=== PATIENT | male | born 1950 | race Caucasian/White ===

== ENCOUNTER 2021-10-12 18:47 | Emergency (ER) | payer MEDICARE, BC, SELFPAY ==
[2021-10-12 19:01] VITALS: BP 141/88; PULSE 94; RESP 18; TEMP 37.2; O2SAT 95; BMI 29.1
--- NOTE | 2021-10-12 19:04 | ED.GENADULT ---
HPI - General Adult General Chief complaint: Skin/Abscess/Foreign Body Stated complaint: Anal Fistula Time Seen by Provider: 10/12/21 18:56 History of Present Illness HPI narrative: 71-year-old male nonsmoker, daily drinker with history of perirectal abscess and possible associated fistula that has been managed [place] doctors [place] presents with concern that it may have returned. States that he has been having discomfort in his anus after sitting for long periods of time but denies any severe pain, fever, chills, rectal drainage or other symptoms that are consistent with prior episodes. He states that he is hoping to get ahead of it this time and not wait so long. He denies any nausea or vomiting, change in diet or other. Related Data Previous Rx's Medication Instructions Recorded amoxicillin 875 mg-potassium 1 tab PO Q12H #20 tabs 10/12/21 clavulanate 125 mg tablet Allergies Allergy/AdvReac Type Severity Reaction Status Date / Time Penicillins Allergy Verified 10/12/21 19:09 Review of Systems Review of Systems Narrative: GENERAL: Denies chills, fatigue, malaise, fever, sweats. HEENT: Denies sinus pain, ear pain, sore throat, difficulty swallowing, dizziness. RESPIRATORY: Denies dyspnea, cough, wheezing, hemoptysis, sputum. CARDIOVASCULAR: Denies chest pain, palpitations, orthopnea, edema, GASTROINTESTINAL: See HPI : Denies dysuria, frequency, incontinence, hematuria, urinary retention. MUSCULOSKELETAL: denies weakness, joint pain, or bony pain SKIN: Denies rash, skin lesions, or other NEUROLOGIC: Denies weakness, headache, numbness, change in speech, confusion, seizures, incoordination. PSYCHIATRIC: No concerning psychosocial issues. 12 point review of systems is negative except for those stated above Patient History Social History Smoking Status: Never smoker Exam Narrative Exam Narrative: GENERAL: [71] year old patient appears stated age. Well-developed patient, in mild distress. HEAD: Atraumatic. Normocephalic. EYES: Pupils equal round and reactive. Extraocular motions intact. No scleral icterus. No injection or drainage. ENT: Nose without bleeding, purulent drainage. Throat without erythema, tonsillar hypertrophy or exudate. Airway patent. NECK: Trachea midline. Non tender CARDIOVASCULAR: Regular rate and rhythm without murmurs, gallops, or rubs. RESPIRATORY: Clear to auscultation. Breath sounds equal bilaterally. No wheezes, rales, or rhonchi. GASTROINTESTINAL: Abdomen soft, non-tender, nondistended. EXTREMITIES: No edema or joint tenderness. BACK: Nontender without deformity or crepitance. No flank tenderness. NEURO: AOx3. SKIN: No rash or erythema of visible areas Initial Vital Signs Initial Vital Signs: Vital Signs Temperature 99 F 10/12/21 19:01 Pulse Rate 94 H 10/12/21 19:01 Respiratory Rate 18 10/12/21 19:01 Blood Pressure 141/88 H 10/12/21 19:01 Pulse Oximetry 95 10/12/21 19:01 Oxygen Delivery Method 10/12/21 19:01 Course Orders Ordered: ED Orders 10/12/21 19:19 CT abdomen pelvis w con Stat 10/12/21 19:20 Complete Blood Count AUTO DIFF Stat Comprehensive Metabolic Panel Stat Lactate (Lactic Acid) Stat 10/12/21 20:44 Blood Culture Stat Discontinued Medications Amoxicillin/Clavulanate Potassium (Amoxicillin/Clav 875/125 Mg) 1 tab PO NOW ONE Stop: 10/12/21 22:13 Vital Signs Vital signs: Vital Signs - 8 hr 10/12/21 19:01 Temperature 99 F Pulse Rate 94 H Respiratory Rate 18 Blood Pressure 141/88 H Pulse Oximetry 95 Oxygen Delivery Method Room Air Medical Decision Making Lab Data Result diagrams: 10/12/21 19:20 10/12/21 19:20 Labs: Lab Results 10/12/21 10/12/21 10/12/21 Range/Units 19:20 19:20 19:20 WBC 12.0 H (4.5-11.0) X10^3/uL RBC 4.32 L (4.5-5.9) X10^6/uL Hgb 14.6 (13.5-17.5) g/dL Hct 43.0 (41-53) % MCV 99.5 (80-100) fL MCH 33.8 (26-34) PG MCHC 34.0 (30-36) % RDW 14.0 (11.6-14.8) % Plt Count 233 (150-400) X10^3/uL Neut % (Auto) 78.1 H (50-75) % Lymph % (Auto) 13.1 L (25-40) % [place] % (Auto) 7.3 (3-14) % Eos % (Auto) 0.8 L (2-4) % Baso % (Auto) 0.7 (0-2) % Neut # (Auto) 9400 H (8144-1328) /uL Lymph # (Auto) 1600 (4159-3140) /uL [place] # (Auto) 900 (0-900) /uL Eos # (Auto) 100 (0-450) /uL Baso # (Auto) 100 (0-100) /uL Sodium 136 L (137-145) mmol/L Potassium 3.6 (3.4-5.1) mmol/L Chloride 101 (98-107) mmol/L Carbon Dioxide 25 (22-32) mmol/L BUN 10 (9-20) mg/dL Creatinine 0.76 (0.66-1.25) mg/dL Estimated GFR > 60 (>60) mL/min BUN/Creatinine Ratio 13.2 (6-22) Glucose 123 H (80-110) mg/dL Lactate 1.8 (0.7-2.1) mmol/L Calcium 9.4 (8.4-10.2) mg/dL Total Bilirubin 0.8 (0.2-1.3) mg/dL AST 32 (17-59) IU/L ALT 30 (<50) IU/L Alkaline Phosphatase 46 (38-126) U/L Total Protein 7.8 (6.3-8.2) g/dL Albumin 4.5 (3.5-5.0) g/dL Globulin 3.3 (1.7-4.1) g/dL Albumin/Globulin Ratio 1.4 (1.0-2.8) Imaging Data CT scan - abdomen/pelvis: Radiologist's Impression: Close Abdomen/Pelvis CT (Signed) Oscar Virgen - 10/12/21 Launch?[address] [address] [address] Scan Report Signed Patient: Roseanne Baker MR#: [id number] : 1950 Acct:[id number] Age/Sex: 71 / M Date of Service: 10/12/21 Loc: ED Accession Number: [id number] ?? Procedure: CT abdomen pelvis w con Ordering Provider: Thiago Muñoz D.O. PROCEDURE:? CT ABDOMEN PELVIS W CON ? INDICATIONS:? rectal pain, history perirectal abscess, pending fistula surgery. ? TECHNIQUE:? After the administration of intravenous contrast, axial sections acquired from the lung bases to the pubic symphysis.? Coronal and sagittal reformats were performed.? For radiation dose reduction, the following was used:? automated exposure control, adjustment of mA and/or kV according to patient size.? Rectal contrast was utilized.? This refluxed into the upper half of right colon. ? COMPARISON:? None. ? FINDINGS:? Image quality:? Excellent.? ? Lung bases:? Unremarkable. Heart:? No significant findings. ? ABDOMEN: Liver:? Unremarkable.? ? Gallbladder:? Unremarkable.? ? Biliary ducts:? Unremarkable.? ? Pancreas:? Unremarkable.? ? Spleen:? Unremarkable.? ? Adrenal Glands:? Unremarkable.? ? Kidneys and Ureters:? 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 ? ? Stomach and Bowel:? Stomach, small bowel loops, and colon are unremarkable.? Peritoneum:? No abnormal intraperitoneal fluid.? No free air.? ? Ventral Wall: ? No hernias.? Abdominal Nodes:? No retroperitoneal or mesenteric adenopathy by size criteria.? Vessels:? Aorta and inferior vena cava are normal in size.? ? PELVIS: Pelvic Organs:? Unremarkable.? ? Bladder:? Unremarkable.? ? Pelvic Nodes: No enlarged lymph nodes.? Miscellaneous: No hernias are seen. ? ? No perirectal abscess is seen.? No fistula opacified by rectal contrast is found.? There does appear to be an inflammatory process at the anterior portion of the anal rectal junction seen on CT series 2, image 94.? ? Bones:? Unremarkable.? IMPRESSION:? No perirectal abscess or fistula containing rectal contrast is identified.? However, there does appear to be an inflammatory process at the anterior border of the anal rectal junction, low pelvis.? Please note that contrast-enhanced pelvic MR scanning provides the most accurate assessment for such structures and may detect internal abscess content that is not accurately detectable by CT scanning. ? Incidental note is made of a small benign angiomyolipoma and a minimally complex small cyst at the left kidney. ? ? Dictated by: Oscar Virgen M.D. on 10/12/2021 at 20:56 ? ? Approved by: Oscar Virgen M.D. on 10/12/2021 at 21:03 ? MDM Narrative Medical decision making narrative: 71-year-old male with very reassuring history and physical exam as no significant findings on labs, no obvious fistula or abscess on CT but some inflammatory change that could be consistent with early infectious process. Patient's discomfort well controlled, no signs of sepsis or need for any specific intervention, lengthy discussion with patient and , prescription sent to pharmacy of choice and questions answered to his apparent satisfaction. Discharge Plan Departure Patient Disposition: Home Clinical Impression: Anal or rectal pain Instructions: DI for Anal Abscess Activity Restrictions/Additional Instructions: *You have been diagnosed with [anal pain, likely to an early infectious process. As we discussed your history and physical exam as well as labs and CT scan are reassuring. The CT scan shows a small inflammatory process but certainly no abscess or obvious fistula that would require a specific or immediate intervention] *What to do: *Please continue to take your regular medications as directed. [x ] New medication prescriptions sent to your pharmacy: [[facility]] [ ] New medication written as a paper prescription [ ] No new medications given *Please follow up with your primary care provider in 2-3 days, call for an appointment. Let them know you were seen in the Emergency Department and that we ask that you be seen in follow up. We will electronically transmit a record of today's note if your PCP is in our system *If you do not have a primary care provider please contact [facility] Resource line at [phone]. They will ask some questions about your medical history and help get you set up with a doctor in the community. *Return to Emergency Department if you should have any new, worsening or concerning symptoms, such as [fever greater than 101 F, shaking chills, worsening pain, persistent vomiting or other bothersome symptoms] Prescriptions: New amoxicillin-pot clavulanate 875-125 mg tablet 1 tab PO Q12H Qty: 20 0RF Referrals: Miscellaneous,Doctor, [Primary Care Provider] - Visit Report Forms: Patient Portal/API
--- NOTE | 2021-10-12 19:19 | DI.CT.S_ITS ---
PROCEDURE: CT ABDOMEN PELVIS W CON INDICATIONS: rectal pain, history perirectal abscess, pending fistula surgery. TECHNIQUE: After the administration of intravenous contrast, axial sections acquired from the lung bases to the pubic symphysis. Coronal and sagittal reformats were performed. For radiation dose reduction, the following was used: automated exposure control, adjustment of mA and/or kV according to patient size. Rectal contrast was utilized. This refluxed into the upper half of right colon. COMPARISON: None. FINDINGS: Image quality: Excellent. Lung bases: Unremarkable. Heart: No significant findings. ABDOMEN: Liver: Unremarkable. Gallbladder: Unremarkable. Biliary ducts: Unremarkable. Pancreas: Unremarkable. Spleen: Unremarkable. Adrenal Glands: Unremarkable. 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 Stomach and Bowel: Stomach, small bowel loops, and colon are unremarkable. Peritoneum: No abnormal intraperitoneal fluid. No free air. Ventral Wall: No hernias. Abdominal Nodes: No retroperitoneal or mesenteric adenopathy by size criteria. Vessels: Aorta and inferior vena cava are normal in size. PELVIS: Pelvic Organs: Unremarkable. Bladder: Unremarkable. Pelvic Nodes: No enlarged lymph nodes. Miscellaneous: No hernias are seen. No perirectal abscess is seen. No fistula opacified by rectal contrast is found. There does appear to be an inflammatory process at the anterior portion of the anal rectal junction seen on CT series 2, image 94. Bones: Unremarkable. IMPRESSION: No perirectal abscess or fistula containing rectal contrast is identified. However, there does appear to be an inflammatory process at the anterior border of the anal rectal junction, low pelvis. Please note that contrast-enhanced pelvic MR scanning provides the most accurate assessment for such structures and may detect internal abscess content that is not accurately detectable by CT scanning. Incidental note is made of a small benign angiomyolipoma and a minimally complex small cyst at the left kidney. Dictated by: Oscar Virgen M.D. on 10/12/2021 at 20:56 Approved by: Oscar Virgen M.D. on 10/12/2021 at 21:03
[2021-10-12 19:35] LABS: Add Manual Diff / Slide Review NO; Basophils Absolute Auto 100 /uL (0-100); Basophils Percent Auto 0.7 % (0-2); Eosinophils Absolute Auto 100 /uL (0-450); Eosinophils Percent Auto 0.8 % (2-4); Hemoglobin 14.6 g/dL (13.5-17.5); Lymphocytes Absolute Auto 1600 /uL (1100-4500); Lymphocytes Percent Auto 13.1 % (25-40); Mean Corpuscular Hemoglobin 33.8 PG (26-34); Mean Corpuscular Volume 99.5 fL (80-100); Monocytes Absolute Auto 900 /uL (0-900); Monocytes Percent Auto 7.3 % (3-14); Neutrophils Absolute Auto 9400 /uL (1500-7000); Neutrophils Percent Auto 78.1 % (50-75); Platelet Count 233 X10^3/uL (150-400); Red Blood Cell Count 4.32 X10^6/uL (4.5-5.9)
[2021-10-12 19:59] LABS: Lactate (Lactic Acid) 1.8 mmol/L (0.7-2.1)
[2021-10-12 20:01] LABS: Alanine Aminotransferase 30 IU/L (<50); Albumin 4.5 g/dL (3.5-5.0); Albumin Globulin Ratio 1.4 (1.0-2.8); Alkaline Phosphatase 46 U/L (38-126); Aspartate Aminotransferase 32 IU/L (17-59); BUN Creatinine Ratio 13.2 (6-22); Bilirubin Total 0.8 mg/dL (0.2-1.3); Blood Urea Nitrogen 10 mg/dL (9-20); Calcium 9.4 mg/dL (8.4-10.2); Carbon Dioxide 25 mmol/L (22-32); Chloride 101 mmol/L (98-107); Estimated Glomerular Filt Rate > 60 mL/min (>60); Globulin 3.3 g/dL (1.7-4.1); Glucose 123 mg/dL (80-110); HEMOLYSIS < 15 (0-50); Potassium 3.6 mmol/L (3.4-5.1); Sodium 136 mmol/L (137-145); Total Protein 7.8 g/dL (6.3-8.2)
== END 2021-10-12 22:22 | disposition home or self-care (01) ==
PROVIDERS: Emergency Provider Emergency Medicine
DX: K62.89 Other specified diseases of anus and rectum (principal)
CPT/HCPCS: 36415; 74177; 80053; 83605; 85025; 87040; 99283; 99284; Q9967

== ENCOUNTER 2023-08-19 11:55 | Emergency (ER) | payer MEDICARE, BC, SELFPAY ==
[2023-08-19] VITALS (9 sets, daily range): BP systolic 140–182; BP diastolic 85–98; PULSE 55–106; RESP 10–20; TEMP 36.6; O2SAT 97–100; BMI 29.0
--- NOTE | 2023-08-19 12:11 | DI.RAD.S_ITS ---
PROCEDURE: XR CHEST 1V INDICATIONS: chest pain TECHNIQUE: One view of the chest was acquired. COMPARISON: None. FINDINGS: Surgical changes and devices: None. Lungs and pleura: Ill-defined opacity in right lower lung field is seen. No pleural effusions or pneumothorax. Mediastinum: Mediastinal contours appear normal. Heart size is normal. Bones and chest wall: No suspicious bony lesions. Overlying soft tissues appear unremarkable. IMPRESSION: Finding may represent small right lower lobe infiltrate versus atelectasis. No pleural effusion or pneumothorax. Dictated by: Kishore Jackson M.D. on 08/19/2023 at 12:57 Approved by: Kishore Jackson M.D. on 08/19/2023 at 12:58
--- NOTE | 2023-08-19 12:24 | EKG_ITS ---
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
[2023-08-19] MEDS: ASPIRIN 81 MG CHEW TAB 324 MG PO (12:37)
--- NOTE | 2023-08-19 12:43 | ED.CHESTPAIN ---
HPI - Chest Pain General Chief Complaint: Chest Pain Stated Complaint: chest pains Time Seen by Provider: 08/19/23 12:21 Source: patient Mode of arrival: Ambulatory Limitations: no limitations History of Present Illness HPI narrative: Patient 73-year-old male with history of hyperlipidemia presenting today with some chest discomfort. He reports that he went inside he had some chest pressure he had a little bit above back twinge. He notes that his heart rate was more elevated than normal 95 rather than his 50 no sick blood pressure was high. He has no longer having chest pain or palpitations. He denies any dizziness or lightheadedness. He does feel like he maybe had a little bit of anxiety after further questioning. It does sound like he has had this previously. He does report that he had a cardiac catheterization 10 years ago and he is followed by legal administrator in [place] once a year. He has no known coronary artery disease he and his or appear in the RV currently. No local care. Related Data Previous Rx's Medication Instructions Recorded amoxicillin 875 mg-potassium 1 tab PO Q12H #20 tabs 10/12/21 clavulanate 125 mg tablet Allergies Allergy/AdvReac Type Severity Reaction Status Date / Time Penicillins Allergy Verified 10/12/21 19:09 Patient History Social History Smoking Status: Never smoker Smoking Status: Never smoker alcohol intake frequency: 3 or more drinks per day Alcohol type: hard liquor Substance Use Type: does not use Exam Initial Vital Signs Initial Vital Signs: Vital Signs Temperature 98 F 08/19/23 12:06 Pulse Rate 106 H 08/19/23 12:06 Respiratory Rate 20 08/19/23 12:06 Blood Pressure 182/98 H 08/19/23 12:06 Pulse Oximetry 97 08/19/23 12:06 Oxygen Delivery Method Room Air 08/19/23 12:06 GENERAL: Alert pleasant 73-year-old male HEENT: Head atraumatic,EOMI, pupils reactive, face symmetric, [moist] mucous membranes CARDIOVASCULAR: Regular rate and rhythm without murmurs, rubs or gallops. RESPIRATORY: Breath sounds equal bilaterally, no wheezes rales or rhonchi. ABDOMEN: Soft, nontender. Normoactive bowel sounds all 4 quadrants. No guarding or rebound. EXTREMITIES: Normal range of motion, no clubbing or edema. Neurovascularly intact NEUROLOGICAL: Alert and oriented x4.Normal gait and speech. Cranial nerves II through XII grossly intact. SKIN: Warm, dry, no laceration, no petechiae, no rashes or lesions. Scores HEART Score Heart Score history: Moderately Suspicious Heart Score EKG: Normal Heart Score Age: > or = 65 years old Heart Score risk factors: 1-2 risk factors Heart Score troponin: < or = to normal limit Heart Score Total: 4 Course Orders Ordered: ED Orders 08/19/23 12:11 XR chest 1V Stat EKG-12 Lead Stat 08/19/23 12:45 Complete Blood Count AUTO DIFF Stat Comprehensive Metabolic Panel Stat Lipase Stat Magnesium Stat NT-proBNP (BNP-Adult 18+) Stat PTT Partial Thromboplastin Hank Stat Prothrombin Time INR Stat Troponin & CK Cardiac Panel Stat 08/19/23 14:45 Trop I [Troponin I] Stat EKG-12 Lead Stat Discontinued Medications Aspirin (Aspirin 81 Mg Chew Tab) 324 mg PO NOW ONE Stop: 08/19/23 12:12 Last Admin: 08/19/23 12:37 Dose: 324 mg Documented By: ROSY Vital Signs Vital signs: Vital Signs - 8 hr 08/19/23 12:06 08/19/23 13:02 08/19/23 13:03 Temperature 98 F Pulse Rate 106 H 68 Respiratory Rate 20 14 Blood Pressure 182/98 H 156/86 H Pulse Oximetry 97 Oxygen Delivery Method Room Air 08/19/23 13:30 08/19/23 14:00 08/19/23 14:30 Temperature Pulse Rate 63 73 61 Respiratory Rate 10 L 16 18 Blood Pressure Pulse Oximetry 98 98 97 Oxygen Delivery Method 08/19/23 14:53 08/19/23 14:53 08/19/23 15:00 Temperature Pulse Rate 73 Respiratory Rate 20 Blood Pressure 153/87 H 140/86 Pulse Oximetry 99 Oxygen Delivery Method 08/19/23 15:00 08/19/23 15:30 08/19/23 15:30 Temperature Pulse Rate 55 L 55 L Respiratory Rate 12 Blood Pressure 147/85 H Pulse Oximetry 99 100 Oxygen Delivery Method MDM - Chest Pain Lab Data 08/19/23 12:45 08/19/23 12:45 Labs: Lab Results 08/19/23 08/19/23 Range/Units 12:45 14:45 WBC 6.5 (4.5-11.0) X10^3/uL RBC 4.22 L (4.5-5.9) X10^6/uL Hgb 14.5 (13.5-17.5) g/dL Hct 42.5 (41-53) % MCV 100.8 H (80-100) fL MCH 34.2 H (26-34) PG MCHC 34.0 (30-36) % RDW 13.8 (11.6-14.8) % Plt Count 258 (150-400) X10^3/uL Neut % (Auto) 72.9 (50-75) % Lymph % (Auto) 16.0 L (25-40) % [place] % (Auto) 9.8 (3-14) % Eos % (Auto) 0.8 L (2-4) % Baso % (Auto) 0.5 (0-2) % Neut # (Auto) 4700 (8782-4316) /uL Lymph # (Auto) 1000 L (6268-6438) /uL [place] # (Auto) 600 (0-900) /uL Eos # (Auto) 0 (0-450) /uL Baso # (Auto) 0 (0-100) /uL PT 11.6 (9.4-12.5) SECONDS INR 1.0 (0.9-1.3) APTT 27 (25.1-36.5) SECONDS Sodium 139 (137-145) mmol/L Potassium 4.2 (3.4-5.1) mmol/L Chloride 103 (98-107) mmol/L Carbon Dioxide 27 (22-32) mmol/L BUN 12 (9-20) mg/dL Creatinine 0.78 (0.66-1.25) mg/dL Estimated GFR > 60 (>60) mL/min BUN/Creatinine Ratio 15.4 (6-22) Glucose 113 H (80-110) mg/dL Calcium 9.4 (8.4-10.2) mg/dL Magnesium 1.7 (1.6-2.3) mg/dL Total Bilirubin 0.8 (0.2-1.3) mg/dL AST 51 (17-59) IU/L ALT 50 H (<50) IU/L Alkaline Phosphatase 49 (38-126) U/L Total Creatine Kinase 102 (55-170) U/L Troponin I < 0.012 < 0.012 (0.01-0.034) ng/mL NT-Pro-B Natriuret Pep 92 (<450) pg/mL Total Protein 7.8 (6.3-8.2) g/dL Albumin 4.7 (3.5-5.0) g/dL Globulin 3.1 (1.7-4.1) g/dL Albumin/Globulin Ratio 1.5 (1.0-2.8) Lipase 66 (23-300) U/L Imaging Data Chest x-ray: Radiologist's Impression: PROCEDURE: XR CHEST 1V INDICATIONS: chest pain TECHNIQUE: One view of the chest was acquired. COMPARISON: None. FINDINGS: Surgical changes and devices: None. Lungs and pleura: Ill-defined opacity in right lower lung field is seen. No pleural effusions or pneumothorax. Mediastinum: Mediastinal contours appear normal. Heart size is normal. Bones and chest wall: No suspicious bony lesions. Overlying soft tissues appear unremarkable. IMPRESSION: Finding may represent small right lower lobe infiltrate versus atelectasis. No pleural effusion or pneumothorax. Dictated by: Kishore Jackson M.D. on 08/19/2023 at 12:57 ECG Data Interpretation: Sinus rhythm rate 77 PA interval 142 QRS 78 QTC 407 no ischemic changes no priors to compare Repeat EKGs sinus rhythm rate [address] changes MDM Narrative Medical decision making narrative: Patient 73-year-old male history of hypertension hyperlipidemia presenting today some chest discomfort palpitations and elevated heart rate. It is heart rate was fast it was 95 but not over that. He does have a heart score of 4 however 2- troponins and symptoms have completely resolved in the emergency department. Blood work has been reviewed 2- troponin, no anemia no leukocytosis, creatinine 0.78 Chest x-ray reviewed no acute cardiopulmonary process EKGs reviewed as above without ischemia Patient does have legal administrator in [place]. I did discuss with him does not need to stay in the hospital for further testing he is overall feeling a lot better however could require further cardiac testing if he continues to have pain. It really sounds like he was having more palpitations than chest discomfort and was more worried about an elevated heart rate of 95 than anything else. Does not suddenly he is having significant shortness of breath. We discussed how he might need a ZIO patch as well. Both patient and understand that he may require further testing and they are welcome to come back to emergency department at any time. Discharge Plan Departure Patient Disposition: Home Clinical Impression: Atypical chest pain, Palpitations Instructions: DI for Atypical Chest Pain Activity Restrictions/Additional Instructions: *You have been diagnosed with palpitations atypical chest *What to do: At this time if you continue to have symptoms he may require a ZIO patch which could be ordered by her legal administrator or PCP. You may also need further cardiac testing *Continue to take medications as directed *Follow up with your primary care provider in 2-3 days or call [phone] *Return to ER if you should have increasing palpitations chest pain shortness of or any new, worsening or concerning symptoms Prescriptions: No Action amoxicillin-pot clavulanate 875-125 mg tablet 1 tab PO Q12H Qty: 20 0RF Referrals: Miscellaneous,Doctor, [Primary Care Provider] - Stand Alone Forms: Patient Portal/API
[2023-08-19 12:57] LABS: Add Manual Diff / Slide Review NO; Basophils Absolute Auto 0 /uL (0-100); Basophils Percent Auto 0.5 % (0-2); Eosinophils Absolute Auto 0 /uL (0-450); Eosinophils Percent Auto 0.8 % (2-4); Hematocrit 42.5 % (41-53); Hemoglobin 14.5 g/dL (13.5-17.5); Lymphocytes Absolute Auto 1000 /uL (1100-4500); Mean Corpuscular Hemoglobin 34.2 PG (26-34); Mean Corpuscular Volume 100.8 fL (80-100); Monocytes Absolute Auto 600 /uL (0-900); Monocytes Percent Auto 9.8 % (3-14); Neutrophils Absolute Auto 4700 /uL (1500-7000); Neutrophils Percent Auto 72.9 % (50-75); Platelet Count 258 X10^3/uL (150-400); Red Blood Cell Count 4.22 X10^6/uL (4.5-5.9); Red Cell Distribution Width 13.8 % (11.6-14.8); White Blood Cell Count 6.5 X10^3/uL (4.5-11.0)
[2023-08-19 13:04] LABS: Prothrombin Time 11.6 SECONDS (9.4-12.5)
[2023-08-19 13:07] LABS: PTT Partial Thromboplastin Tim 27 SECONDS (25.1-36.5)
[2023-08-19 13:09] LABS: Alanine Aminotransferase 50 IU/L (<50); Albumin 4.7 g/dL (3.5-5.0); Albumin Globulin Ratio 1.5 (1.0-2.8); Alkaline Phosphatase 49 U/L (38-126); Aspartate Aminotransferase 51 IU/L (17-59); BUN Creatinine Ratio 15.4 (6-22); Bilirubin Total 0.8 mg/dL (0.2-1.3); Blood Urea Nitrogen 12 mg/dL (9-20); Calcium 9.4 mg/dL (8.4-10.2); Carbon Dioxide 27 mmol/L (22-32); Chloride 103 mmol/L (98-107); Creatine Kinase 102 U/L (55-170); Estimated Glomerular Filt Rate > 60 mL/min (>60); Globulin 3.1 g/dL (1.7-4.1); Glucose 113 mg/dL (80-110); HEMOLYSIS < 15 (0-50); Lipase 66 U/L (23-300); Magnesium 1.7 mg/dL (1.6-2.3); Potassium 4.2 mmol/L (3.4-5.1); Sodium 139 mmol/L (137-145); Total Protein 7.8 g/dL (6.3-8.2)
[2023-08-19 13:22] LABS: NT-proBNP (BNP-Adult 18+) 92 pg/mL (<450); Troponin I < 0.012 ng/mL (0.01-0.034)
--- NOTE | 2023-08-19 14:51 | EKG_ITS ---
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
[2023-08-19 15:15] LABS: Troponin I < 0.012 ng/mL (0.01-0.034)
== END 2023-08-19 15:46 | disposition home or self-care (01) ==
PROVIDERS: Emergency Provider Emergency Medicine
DX: R07.89 Other chest pain (principal); R00.2 Palpitations
CPT/HCPCS: 36415; 71045; 80053; 82550; 83690; 83735; 83880; 84484; 85025; 85610; 85730; 93005; 99283; 99284